=== PATIENT | male | born 1960 | race Caucasian/White ===

== ENCOUNTER 2020-01-10 09:16 | Emergency (ER) | payer OTHER, SELFPAY ==
--- NOTE | 2020-01-10 09:18 | ED.LOWEXIN ---
HPI - Extremity Injury (Lower) General Chief Complaint: Extremity Injury, Lower Stated Complaint: hurt right foot a week ago Time Seen by Provider: 01/10/20 09:17 Source: patient Mode of arrival: Ambulatory Limitations: no limitations History of Present Illness HPI Narrative: This is a 59-year-old male who comes to the emergency department with complaint of pain and swelling of the right 1st metatarsal joint on the foot. Patient states that last Friday or he was wearing clog type shoes helping to paint and do some home improvement projects and noticed at the end of the day that there was some swelling redness and irritation at that location. He does not recall any other direct trauma although he states he might have dropped something on his foot but he is not sure. He states it is painful just in that location the pain has not been spreading. There is redness at that location but has not been spreading. He has not had any fevers. He is a known diabetic but states he does not have any neuropathy that he is aware, he denies any history of gout. He does have a history of hypertension and dyslipidemia. [facility] He states he takes 800 mg of ibuprofen and about a 1/2 hour afterwards feels better nasal to sleep. He has not had any numbness tingling or weakness. He does not have any other skin changes. Related Data Previous Rx's Medication Instructions Recorded HYDROCHLOROTHIAZIDE (#HCTZ) 25 mg PO Q DAY #90 04/22/13 fenofibrate nanocrystallized 145 mg PO HS #90 tab 04/22/13 [Tricor] insulin aspart U-100 [Novolog 10 unit SQ BEFORE MEAL #1 vial 04/22/13 PenFill U-100 Insulin] lisinopril [Zestril] 10 mg PO Q DAY #90 04/22/13 metformin 1,000 mg PO BID #120 tab 04/22/13 vardenafil [Levitra] 10 mg PO PRN #10 04/22/13 indomethacin 25 mg PO TID PRN #14 cap 01/10/20 prednisone 20 mg PO DAILY #5 tab 01/10/20 Allergies Allergy/AdvReac Type Severity Reaction Status Date / Time adhesive tape [ADHESIVE TAPE] Allergy Unknown Verified 01/10/20 09:42 Review of Systems Review of Systems ROS Unobtainable: All systems reviewed & are unremarkable except as noted in HPI and below Patient History Medical History (Updated 01/10/20 @ 11:00 by Rocio Nagel DO) Diabetes (Acute) Dyslipidemia (Acute) Hypertension (Acute) Social History Smoking Status: Never smoker Exam Narrative Exam Narrative: GENERAL: Alert and oriented x three, obese male in mild distress HEENT: Head normocephalic, atraumatic, EOMI, pupils reactive, face symmetric, moist mucous membranes NECK: Supple, full range of motion CARDIOVASCULAR: Regular rate and rhythm without murmurs, rubs or gallops. RESPIRATORY: Breath sounds equal bilaterally, no wheezes rales or rhonchi. ABDOMEN: Soft, nontender. Normoactive bowel sounds all 4 quadrants. No guarding or rebound, rigidity, no mass EXTREMITIES: Normal range of motion, no clubbing. Patient has some erythema and tenderness over the distal end of the 1st MTP on the right foot. Patient has full range of motion. He has 2+ dorsalis pedis. He has mild swelling over the joint itself and extending over the tops of the toes. There is no well-circumscribed line for erythema. Patient has cap refill less than 2 seconds in all 5 toes. Patient does have a callus over the 1st MTP. NEUROLOGICAL: Cranial nerves II through XII grossly intact. Moving all extremities SKIN: Warm, dry, no petechiae, no rashes or lesions otherwise noted. Initial Vital Signs Initial Vital Signs: Vital Signs Temperature 96.4 F L 01/10/20 09:24 Pulse Rate 74 01/10/20 09:24 Respiratory Rate 16 01/10/20 09:24 Blood Pressure 161/80 H 01/10/20 09:24 Pulse Oximetry 98 01/10/20 09:24 Course Orders Ordered: ED Orders 01/10/20 09:23 XR foot RT min 3V Stat 01/10/20 10:12 Basic Metabolic Panel Stat C-Reactive Protein Quant Stat Complete Blood Count AUTO DIFF Stat Erythrocyte Sedimentation Rate Stat Uric Acid Stat Vital Signs Vital signs: Vital Signs - 8 hr 01/10/20 09:24 Temperature 96.4 F L Pulse Rate 74 Respiratory Rate 16 Blood Pressure 161/80 H Pulse Oximetry 98 MDM - Extremity Injury (Lower) Lab Data Attestation: I reviewed the patient's lab results. Result diagrams: 01/10/20 10:12 01/10/20 10:12 Labs: Lab Results 01/10/20 01/10/20 Range/Units 10:12 10:12 WBC 4.8 (4.5-11.0) X10^3/uL RBC 3.94 L (4.5-5.9) X10^6/uL Hgb 12.4 L (13.5-17.5) g/dL Hct 36.0 L (41-53) % MCV 91.3 (80-100) fL MCH 31.3 (26-34) PG MCHC 34.3 (30-36) % RDW 12.9 (11.6-14.8) % Plt Count 243 (150-400) X10^3/uL Neut % (Auto) 55.1 (50-75) % Lymph % (Auto) 25.9 (25-40) % [place] % (Auto) 10.4 (3-14) % Eos % (Auto) 7.6 H (2-4) % Baso % (Auto) 1.0 (0-2) % Neut # (Auto) 2700 (4985-0566) /uL Lymph # (Auto) 1300 (7674-1437) /uL [place] # (Auto) 500 (0-900) /uL Eos # (Auto) 400 (0-450) /uL Baso # (Auto) 0 (0-100) /uL ESR 8 (0-15) MM/HR Sodium 141 (137-145) mmol/L Potassium 4.6 (3.4-5.1) mmol/L Chloride 111 H (98-107) mmol/L Carbon Dioxide 19 L (22-32) mmol/L BUN 32 H (9-20) mg/dL Creatinine 1.26 H (0.66-1.25) mg/dL Estimated GFR 58.2 L (>60) mL/min BUN/Creatinine Ratio 25.4 H (6-22) Glucose 138 H (80-110) mg/dL Uric Acid 8.9 H (3.5-8.5) mg/dL Calcium 9.6 (8.4-10.2) mg/dL C-Reactive Protein < 0.5 (<1.0) mg/dL Imaging Data Foot x-ray: Radiologist's Impression: [address] [address] XRay Report Signed Patient: Rigo Reynoso WMR#: [id number] : 8Acct:[id number] Age/Sex: 59 / MDate of Service: 01/10/20 Loc: ED Accession Number: [id number] Procedure: XR foot RT min 3V Ordering Provider: Rocio Nagel D.O. PROCEDURE: XR FOOT RT MIN 3V INDICATIONS: redness, swelling right 1st mtp TECHNIQUE: 3 views of the foot were acquired. COMPARISON: None. FINDINGS: Bones: No fractures or dislocations. Small cortical erosions at the distal aspect of the first metatarsal. Soft tissues: No tibiotalar joint effusion. Achilles tendon appears normal. Mild soft tissue edema is present adjacent to the first MTP joint. IMPRESSION: First digit soft tissue edema with erosions. This could represent gout. Clinical correlation is recommended. Dictated by: Amelia Chadwick M.D. on 01/10/2020 at 9:49 Approved by: Amelia Chadwick M.D. on 01/10/2020 at 9:57 [facility] Narrative Medical decision making narrative: Patient's x-ray is suspicious for gouty like changes and it is the proper location. With no clear trauma and does not show a clear or obvious cellulitis. Patient's lab work is supportive he has a normal white count he does have anemia with a hemoglobin of 12.4. He is in a feels or elevated with no left shift. Patient's lab work shows normal sodium potassium chloride elevated 111 was a CO2 of 19 BUN of 32 and creatinine 1.26 uric acid is 8.9 and C reactive protein and ESR are both negative. Discussed with patient he is not aware if he has any history of chronic kidney disease. We discussed starting with steroids for his symptoms. He was given a short-term script of indomethacin but encouraged to avoid using this medication unless truly needed and very sparingly. I did ask him to contact his primary care to discuss his prior renal function and they may need to recheck outpatient labs to make sure that he has not had any worsening or new changes. Also discussed to avoid any other NSAIDs if he is taking indomethacin. Patient expressed his understanding and feels comfortable with the plan. Discharge Plan Departure Patient Disposition: Home Clinical Impression: Gout Qualifiers: Gout site: foot Encounter type: initial encounter Chronicity: acute Laterality: right Instructions: DI for Gout Activity Restrictions/Additional Instructions: Your labs and imaging today support a diagnosis of gout. If this becomes a recurrent issue you may wish to start a daily medication to decrease the frequency of attacks. If they are are very rare you may not need this medication. I would discuss it with your primary care physician. Your labs show decreased renal function and would recommend close follow up with repeat labs in the next week if you have not been told this in the past. You may take steroids once daily for symptoms until gone. You may take indomethacin for pain but this medication can cause kidney issues so I would use sparingly. Take both these medications with food. Return for fevers, increasing redness in your foot, increasing swelling, loss of sensation, pallor or bluish discoloration, persistent vomiting, black or bloody stools, decreased urine output or other new or concerning symptoms. Prescriptions: New prednisone 20 mg tablet 20 mg PO DAILY Qty: 5 RF: 0 indomethacin 25 mg capsule 25 mg PO TID PRN (Reason: gout) Qty: 14 RF: 0 No Action metformin 1,000 MG tablet 1,000 mg PO BID Qty: 120 RF: 3 lisinopril [Zestril] 10 MG tablet 10 mg PO Q DAY Qty: 90 RF: 3 insulin aspart U-100 [Novolog PenFill U-100 Insulin] 100 UNIT/1 ML cartridge 10 unit SQ BEFORE MEAL Qty: 1 RF: 5 vardenafil [Levitra] 10 MG tablet 10 mg PO PRN Qty: 10 RF: 1 fenofibrate nanocrystallized [Tricor] 145 MG tablet 145 mg PO HS Qty: 90 RF: 3 HYDROCHLOROTHIAZIDE (#HCTZ) 25 mg PO Q DAY Qty: 90 RF: 2 Referrals: Janiya Pinto DO [Primary Care Provider] -
--- NOTE | 2020-01-10 09:23 | DI.RAD.S_ITS ---
PROCEDURE: XR FOOT RT MIN 3V INDICATIONS: redness, swelling right 1st mtp TECHNIQUE: 3 views of the foot were acquired. COMPARISON: None. FINDINGS: Bones: No fractures or dislocations. Small cortical erosions at the distal aspect of the first metatarsal. Soft tissues: No tibiotalar joint effusion. Achilles tendon appears normal. Mild soft tissue edema is present adjacent to the first MTP joint. IMPRESSION: First digit soft tissue edema with erosions. This could represent gout. Clinical correlation is recommended. Dictated by: Amelia Chadwick M.D. on 01/10/2020 at 9:49 Approved by: Amelia Chadwick M.D. on 01/10/2020 at 9:57
[2020-01-10 09:24] VITALS: BP 161/80; PULSE 74; RESP 16; TEMP 35.8; O2SAT 98
--- NOTE | 2020-01-10 09:25 | PC.NURSE ---
Patient has redness and swelling to right great toe since Friday last week. Happened after work, unsure if any injury or rubbing from shoe. Patient has diabetes, but denies neuropathy. States he has not history of gout.
[2020-01-10 10:20] LABS: Add Manual Diff / Slide Review NO; Basophils Absolute Auto 0 /uL (0-100); Eosinophils Absolute Auto 400 /uL (0-450); Eosinophils Percent Auto 7.6 % (2-4); Hemoglobin 12.4 g/dL (13.5-17.5); Lymphocytes Absolute Auto 1300 /uL (1100-4500); Lymphocytes Percent Auto 25.9 % (25-40); Mean Corpuscular HGB Conc 34.3 % (30-36); Mean Corpuscular Hemoglobin 31.3 PG (26-34); Mean Corpuscular Volume 91.3 fL (80-100); Monocytes Absolute Auto 500 /uL (0-900); Monocytes Percent Auto 10.4 % (3-14); Neutrophils Absolute Auto 2700 /uL (1500-7000); Neutrophils Percent Auto 55.1 % (50-75); Platelet Count 243 X10^3/uL (150-400); Red Blood Cell Count 3.94 X10^6/uL (4.5-5.9); Red Cell Distribution Width 12.9 % (11.6-14.8); White Blood Cell Count 4.8 X10^3/uL (4.5-11.0)
[2020-01-10 10:36] LABS: BUN Creatinine Ratio 25.4 (6-22); Blood Urea Nitrogen 32 mg/dL (9-20); Calcium 9.6 mg/dL (8.4-10.2); Carbon Dioxide 19 mmol/L (22-32); Chloride 111 mmol/L (98-107); Estimated Glomerular Filt Rate 58.2 mL/min (>60); Glucose 138 mg/dL (80-110); HEMOLYSIS < 15 (0-50); Potassium 4.6 mmol/L (3.4-5.1); Sodium 141 mmol/L (137-145); Uric Acid 8.9 mg/dL (3.5-8.5)
[2020-01-10 10:37] LABS: C-Reactive Protein Quant < 0.5 mg/dL (<1.0)
[2020-01-10 10:41] LABS: Erythrocyte Sedimentation Rate 8 MM/HR (0-15)
[2020-01-10 11:11] VITALS: BP 123/68; PULSE 73; RESP 16; O2SAT 99
== END 2020-01-10 11:13 | disposition home or self-care (01) ==
PROVIDERS: Emergency Provider Emergency Medicine; Family Provider Family Medicine; PCP Family Medicine
DX: M10.9 Gout, unspecified (principal); D64.9 Anemia, unspecified; R79.89 Other specified abnormal findings of blood chemistry
CPT/HCPCS: 36415; 73630; 80048; 84550; 85025; 85651; 86140; 99282; 99284

== ENCOUNTER → 2020-01-11 15:56 | Outpatient (CLI) | payer OTHER, SELFPAY ==
--- NOTE | 2020-01-11 15:59 | DI.ECHO.S_ITS ---
[facility] +---------+ : : [address] [place] [address] : : : : [id number] : : : : Phone: [phone] Echocardiogram Report + + :Name: RONAL TAYLOR Study Date: 01/11/2020 Height: 70 in : :[facility] Weight: 261 lb : : Gender: Male BSA: 2.3 m2 : :: 1960 Age: 59 yrs BP: 144/76 mmHg: :Reason For Study: SYSTEMIC SCLEROSIS : :Ordering Physician: Gregg Ramirez : :Vonda Performed By: Judie Hanson : :Referring: GREGG FERRARI : + + Interpretation Summary 1) Normal left veentricular size, thickness, wall motion, and systolic function (EF 60-65%). 2) The right ventricle is mildly dilated. The right ventricular systolic function is normal. 3) No significant valvular abnormalities. 4) The right ventricular systolic pressure is estimated to be at least 30 mmHg based on an estimated right atrial pressure of 3 mm Hg. 5) The aortic root is mildly dilated at 4.1cm. 6) No prior Echo available for comparison. Procedure: A two-dimensional transthoracic echocardiogram with color flow and Doppler was performed. The study quality was technically adequate. The patient was in normal sinus rhythm during the exam. Left Ventricle: The left ventricle is normal in size and wall thickness. The ejection fraction is estimated to be 60-65%. Left ventricular systolic function is normal without focal wall motion abnormalities. Diastolic parameters suggest probable normal left ventricular diastolic function and normal filling pressures. Right Ventricle: The right ventricle is mildly dilated. The right ventricular systolic function is normal. Atria: Both atria are normal in size. There is no Doppler evidence for an interatrial shunt. Mitral Valve: The mitral valve is normal in structure and function. There is trace mitral regurgitation. Aortic Valve: The aortic valve is grossly normal. There is no aortic valve stenosis. There is trace aortic regurgitation. Tricuspid Valve: The tricuspid valve is normal in structure and function. There is mild tricuspid regurgitation. The right ventricular systolic pressure is estimated to be at least 30 mmHg based on an estimated right atrial pressure of 3 mm Hg. Pulmonic Valve: The pulmonic valve is not well visualized. Great Vessels: The aortic root is mildly dilated. The ascending aorta is normal in size. The IVC is of normal diameter and collapses greater than 50% with a sniff. This suggests a low right atrial pressure of 3 mm Hg. Pericardium/ Pleura There is no pericardial effusion. There is no pleural effusion. MMode/2D Measurements & Calculations LVIDd: 5.7 cm LVOT diam: 2.4 cm LVIDs: 3.6 cm Ao root diam: 4.1 cm FS: 36.5 % asc Aorta Diam: 3.6 cm EPSS: 0.61 cm Ao Arch Diam (Prox Trans): 3.2 cm IVSd: 0.88 cm LVPWd: 0.91 cm LV barton. diameter/BSA (cm/m^2): 2.4 LV sys. diameter/BSA (cm/m^2): 1.5 LA A2 area: 24.5 cm2 RA long axis: 4.7 cm LA A4 area: 17.5 cm2 RA area: 16.6 cm2 LA length (vol): 5.1 cm RA vol: 49.5 ml LA vol: 70.6 ml RA : 21.2 ml/m2 LA vol index: 30.2 ml/m2 IVC diam: 1.5 cm RVD1 (basal): 4.4 cm TAPSE: 2.4 cm Doppler Measurements & Calculations Ao V2 max: 137.9 cm/sec LVOT Max Osei: 130.5 cm/sec Ao V2 mean: 88.5 cm/sec LV V1 max P.8 mmHg Ao max P.6 mmHg LV V1 VTI: 25.8 cm Ao mean P.7 mmHg AIDAN(I,D): 4.5 cm2 Ao V2 VTI: 25.1 cm AIDAN(V,D): 4.2 cm2 sev ratio: 1.0 AIDAN indexed to BSA (cm^2/m^2): 1.9 MV E max osei: 81.9 cm/sec TR max osei: 261.9 cm/sec MV A max osei: 97.3 cm/sec TR max P.5 mmHg MV E/A: 0.84 Med Peak E' Osei: 7.6 cm/sec E/E' med: 10.8 Lat Peak E' Osei: 12.6 cm/sec E/E' lat: 6.5 E/e' average: 8.7 MV dec time: 0.28 sec SV(LVOT): 113.4 ml Reading Physician:12:06 PM
== END ==
PROVIDERS: Family Provider Family Medicine; Referring Provider Internal Medicine Cardiovascular Disease; Visit Provider Internal Medicine Cardiovascular Disease
DX: I07.1 Rheumatic tricuspid insufficiency (principal); I77.810 Thoracic aortic ectasia; M34.9 Systemic sclerosis, unspecified
CPT/HCPCS: 93306

== ENCOUNTER → 2021-06-29 15:09 | Outpatient (CLI) | payer OTHER, SELFPAY ==
[2021-06-29 16:02] LABS: Influenza A - CEPHEID Flu A NEGATIVE (NEGATIVE); Influenza B - CEPHEID Flu B NEGATIVE (NEGATIVE)
[2021-06-29 16:13] LABS: COVID19 -Nasal RAPID Negative (Negative)
== END ==
PROVIDERS: Family Provider Family Medicine; Visit Provider Nurse Practitioner
DX: Z20.822 Contact with and (suspected) exposure to COVID-19 (principal); J06.9 Acute upper respiratory infection, unspecified
CPT/HCPCS: 87502; 87635